=== PATIENT | male | born 1960 | race Caucasian/White ===

== ENCOUNTER → 2018-11-05 | Outpatient (REF) ==
--- NOTE | 2018-11-05 15:50 | REP ---
HISTORY: Disability. COMPARISON: None. FINDINGS: Three views of the shoulder were performed. The acromioclavicular and glenohumeral relationships are within normal limits. There is no acute fracture or destructive osseous lesion. Electronically Signed by Adis Merritt DO 11/06/2018 03:22 P
--- NOTE | 2018-11-05 16:00 | REP ---
REASON: Disability. COMPARISON: None. Small partial syndesmophytes are seen bilaterally at every level. The pedicles are intact bilaterally. There is posterior disc space narrowing at every level. Vertebral body height and alignment is within normal limits. IMPRESSION: Chronic changes as described above. Electronically Signed by Adis Merritt DO 11/06/2018 03:23 P
== END ==
LOC: M SMT 13:08
PROVIDERS: ATTEND Internal Medicine
DX: Z00.00 Encounter for general adult medical examination without abnormal findings (principal)